=== PATIENT | male | born 1980 | race African-American/Black ===

== ENCOUNTER 2019-04-08 02:22 | Emergency (ER) | payer OTHER ==
[~2019-04-08] VITALS: Ht 175.3 cm; Wt 120.2 kg
[~2019-04-08 02:22] MED LIST: NOHOMEMEDICATIONS
[2019-04-08] MEDS ORDERED: GABAPENTIN 100100 MG PO (02:44)
[2019-04-08] MEDS ORDERED: TRAMADOL 50 MG50 MG PO (03:31)
[2019-04-08] MEDS ORDERED: NAPROSYN500 MG PO (03:31)
[2019-04-08 04:30] VITALS: BP 144/82
== END 2019-04-08 03:45 | disposition home or self-care (01) ==
LOC: ER 02:22
DX: M25.421 Effusion, right elbow (principal)